=== PATIENT | male | born 1980 | race Two or more races ===

== ENCOUNTER 2016-06-26 17:04 | Emergency (ER) | payer MEDICAID ==
[~2016-06-26] VITALS: Ht 177.8 cm; Wt 84.0 kg
[2016-06-26 17:21] VITALS: BP 115/85
[2016-06-26] MEDS ORDERED: BACITRACIN ZINC OINT UDPKT TOP ONE (21:00)
== END 2016-06-26 21:42 | disposition home or self-care (01) ==
LOC: ER 18:24
DX: Z48.01 Encounter for change or removal of surgical wound dressing (principal); F17.200 Nicotine dependence, unspecified, uncomplicated
CPT/HCPCS: 99283

== ENCOUNTER 2022-05-26 16:21 | Emergency (ER) | payer MEDICAID ==
[~2022-05-26] VITALS: Ht 177.8 cm; Wt 86.0 kg
[2022-05-26] MEDS ORDERED: HYDROCODONE/ACETAMINOPHEN 5/325MG TABLET PO ONE (17:30)
[2022-05-26] MEDS ORDERED: IBUPROFEN 400MG TABLET PO ONE (17:30)
[2022-05-26] MEDS ORDERED: IBUPROFEN 400MG TABLET PO NR (20:30)
[2022-05-26] MEDS ORDERED: HYDROCODONE/ACETAMINOPHEN 5/325MG TABLET PO NR (20:30)
[2022-05-26 20:33] VITALS: BP 124/81
[2022-05-26] MEDS ORDERED: IBUP-2028 MT (21:08)
[2022-05-26] MEDS ORDERED: HYDR-4001 MT (21:08)
== END 2022-05-26 21:33 | disposition home or self-care (01) ==
LOC: ER 16:21
DX: S82.301A Unspecified fracture of lower end of right tibia, initial encounter for closed fracture (principal); W18.39XA Other fall on same level, initial encounter; Y93.89 Activity, other specified; Y92.89 Other specified places as the place of occurrence of the external cause; Y99.8 Other external cause status
CPT/HCPCS: 29515; 73590; 73610; 73620; 99284; Z7610